=== PATIENT | male | born 1995 | race Caucasian/White ===

== ENCOUNTER 2019-02-02 10:02 | Emergency (ER) | payer SELFPAY ==
[~2019-02-02] VITALS: Ht 188 cm; Wt 72.7 kg
[2019-02-02 10:05] VITALS: BP 135/74; PULSE 90; TEMP 97.7
== END 2019-02-02 10:37 | disposition home or self-care (01) ==
LOC: COL.ER 10:02
DX: H61.21 Impacted cerumen, right ear (principal)

== ENCOUNTER 2019-02-12 00:46 | Emergency (ER) | payer SELFPAY ==
[2019-02-12 00:48] VITALS: BP 122/86; TEMP 97
[2019-02-12 02:40] VITALS: PULSE 105
== END 2019-02-12 02:40 | disposition home or self-care (01) ==
LOC: COL.ER 00:46
DX: S63.266A Dislocation of metacarpophalangeal joint of right little finger, initial encounter (principal); F17.210 Nicotine dependence, cigarettes, uncomplicated; F12.90 Cannabis use, unspecified, uncomplicated; W19.XXXA Unspecified fall, initial encounter
CPT/HCPCS: Q4021

== ENCOUNTER 2019-02-12 03:20 | Emergency (ER) | payer SELFPAY ==
[~2019-02-12] VITALS: Ht 188 cm; Wt 63.0 kg
[2019-02-12 04:24] LABS: TRICYCLIC ANTIDEPRESS URINE NEGATIVE
[2019-02-12 04:26] LABS: BASO # 0.1 (0.0-0.2); BASO % 0.7 % (0.0-2.0); EOS % 0.4 % (0-4.0); GRAN # 4.6 (1.4-6.5); HEMATOCRIT 46.9 % (42.0-52.0); HEMOGLOBIN 15.7 g/dl (13.5-18.0); LYMPH # 1.9 (1.2-3.4); LYMPH % 26.8 % (20.0-51.0); MEAN CELL VOLUME 93 fl (80.0-100.0); MEAN CORPUSCULAR HEMOGLOBIN 31 pg (27.0-31.0); MEAN CORPUSCULAR HGB CONC 34 g/dl (33.0-37.0); MEAN PLATELET VOLUME 9.4 fl (7.4-10.4); MONO # 0.4 (0.1-0.6); MONO % 5.8 % (1.7-9.3); PLATELET COUNT 320 K/mm3 (130-400); RED BLOOD COUNT 5.02 M/mm3 (4.20-5.60); REDCELL DISTRIBUTION WIDTH-CV 12.3 % (11.5-14.5)
[2019-02-12 04:35] LABS: ALANINE AMINOTRANSFERASE 14 U/L (21-72); ALBUMIN 4.9 gm/dL (3.5-5.0); ALCOHOL(ethanol),MEDICAL 71 mg/dL; ALKALINE PHOSPHATASE 53 U/L (50-136); ANION GAP 14 mmol/L (7-16); AST,SGOT 24 U/L (15-37); BILIRUBIN,TOTAL 0.6 mg/dL (0.0-1.0); BLOOD UREA NITROGEN 12 mg/dL (9-20); CALCIUM 9.5 mg/dL (8.4-10.2); CARBON DIOXIDE 27 mmol/L (22-30); CHLORIDE 109 mmol/L (98-107); CREATININE, serum 0.86 (0.66-1.25); GLUCOSE 109 mg/dL (74-106); POTASSIUM 4.8 mmol/L (3.4-5.0); SODIUM 151 mmol/L (137-145); TOTAL PROTEIN 8.3 gm/dL (6.4-8.2)
[2019-02-12 04:37] LABS: ACETAMINOPHEN < 10 ug/mL (10-30); SALICYLATE < 1.0 mg/dL
[2019-02-12 11:10] VITALS: TEMP 98.5
[2019-02-12 23:06] VITALS: BP 118/92; PULSE 88
== END 2019-02-12 23:03 | disposition home or self-care (01) ==
LOC: COL.ER 03:20
PROVIDERS: Emergency Medicine
DX: R45.851 Suicidal ideations (principal); F32.9 Major depressive disorder, single episode, unspecified; F17.210 Nicotine dependence, cigarettes, uncomplicated

== ENCOUNTER 2020-03-07 23:48 | Emergency (ER) | payer SELFPAY ==
[~2020-03-07] VITALS: Ht 175.3 cm; Wt 79.5 kg
[2020-03-07 23:53] VITALS: TEMP 98.7
[2020-03-08 01:02] LABS: BASO # 0.1 (0.0-0.2); BASO % 0.7 % (0.0-2.0); EOS # 0.1 (0.0-0.7); EOS % 2.1 % (0-4.0); GRAN # 3.7 (1.4-6.5); GRAN % 55.8 % (42.2-75.2); HEMATOCRIT 40.2 % (42.0-52.0); HEMOGLOBIN 13.3 g/dl (13.5-18.0); LYMPH # 2.1 (1.2-3.4); LYMPH % 31.9 % (20.0-51.0); MEAN CELL VOLUME 93 fl (80.0-100.0); MEAN CORPUSCULAR HEMOGLOBIN 31 pg (27.0-31.0); MEAN CORPUSCULAR HGB CONC 33 g/dl (33.0-37.0); MEAN PLATELET VOLUME 9.7 fl (7.4-10.4); MONO # 0.6 (0.1-0.6); MONO % 9.4 % (1.7-9.3); PLATELET COUNT 266 K/mm3 (130-400); RED BLOOD COUNT 4.33 M/mm3 (4.20-5.60); REDCELL DISTRIBUTION WIDTH-CV 12.9 % (11.5-14.5)
[2020-03-08 01:24] LABS: ACETAMINOPHEN < 10 ug/mL (10-30); ALANINE AMINOTRANSFERASE 14 U/L (4-49); ALCOHOL(ethanol),MEDICAL 175 mg/dL; ALKALINE PHOSPHATASE 54 U/L (50-136); ANION GAP 12 mmol/L (7-16); AST,SGOT 36 U/L (15-37); BILIRUBIN,TOTAL 0.4 mg/dL (0.0-1.0); BLOOD UREA NITROGEN 13 mg/dL (9-20); CALCIUM 8.3 mg/dL (8.4-10.2); CARBON DIOXIDE 19 mmol/L (22-30); CHLORIDE 111 mmol/L (98-107); GLUCOSE 110 mg/dL (74-106); LIPASE 103 U/L (23-300); MAGNESIUM 1.8 mg/dL (1.6-2.3); POTASSIUM 3.5 mmol/L (3.4-5.0); SALICYLATE < 1.0 mg/dL; SODIUM 142 mmol/L (137-145); TOTAL PROTEIN 6.7 gm/dL (6.4-8.2)
[2020-03-08 01:47] LABS: COLLECTION METHOD CLEAN CATCH
[2020-03-08 01:50] LABS: TSH w REFLEX 0.852 uIU/mL (0.465-4.680)
[2020-03-08 01:53] LABS: MUCOUS Present /lpf; PH 5 (5-8); SQUAMOUS EPITHELIAL None Seen /hpf; URINE APPEARANCE Clear; URINE BACTERIA None Seen /hpf; URINE BILIRUBIN Negative (NEGATIVE); URINE BLOOD 1+ (NEGATIVE); URINE COLOR Yellow; URINE GLUCOSE Negative (NEGATIVE); URINE KETONE Negative (NEGATIVE); URINE LEUKOCYTE ESTERASE Negative (NEGATIVE); URINE NITRATE Negative (NEGATIVE); URINE PROTEIN(semi-quant) Negative (NEGATIVE); URINE RBC 0-2 /hpf; URINE UROBILINOGEN Negative (NEGATIVE)
[2020-03-08 02:08] LABS: TRICYCLIC ANTIDEPRESS URINE NEGATIVE
[2020-03-08] MEDS ORDERED: CEPHALEXIN500 M1 PO (05:53)
[2020-03-08 09:59] VITALS: BP 141/87; PULSE 81
== END 2020-03-08 10:05 | disposition home or self-care (01) ==
LOC: COL.ER 23:48
PROVIDERS: Emergency Medicine
DX: S51.812A Laceration without foreign body of left forearm, initial encounter (principal); F10.929 Alcohol use, unspecified with intoxication, unspecified; R45.89 Other symptoms and signs involving emotional state; Y90.6 Blood alcohol level of 120-199 mg/100 ml; Z88.2 Allergy status to sulfonamides; X78.1XXA Intentional self-harm by knife, initial encounter
CPT/HCPCS: J7030; Q4021

== ENCOUNTER 2020-03-18 00:02 | Emergency (ER) | payer SELFPAY ==
[~2020-03-18 00:02] MED LIST: CEPHALEXIN500 M1 PO
== END 2020-03-18 00:07 | disposition left against medical advice (07) ==
LOC: COL.ER 00:02
DX: Z72.89 Other problems related to lifestyle (principal)

== ENCOUNTER 2020-03-18 00:24 | Emergency (ER) | payer SELFPAY ==
[~2020-03-18] VITALS: Ht 188 cm; Wt 72.3 kg
[2020-03-18 00:30] VITALS: BP 113/75; TEMP 98.7
[2020-03-18 01:37] VITALS: PULSE 81
== END 2020-03-18 01:38 | disposition home or self-care (01) ==
LOC: COL.ER 00:24
DX: S51.811A Laceration without foreign body of right forearm, initial encounter (principal); W25.XXXA Contact with sharp glass, initial encounter; Y92.009 Unspecified place in unspecified non-institutional (private) residence as the place of occurrence of the external cause

== ENCOUNTER 2020-04-14 22:31 | Emergency (ER) | payer SELFPAY ==
[~2020-04-14] VITALS: Ht 182.9 cm; Wt 72.7 kg
[2020-04-14 22:40] VITALS: TEMP 98.5
[2020-04-14 22:52] LABS: BASO # 0.1 (0.0-0.2); BASO % 0.8 % (0.0-2.0); EOS % 0.4 % (0-4.0); GRAN # 4.4 (1.4-6.5); GRAN % 62.2 % (42.2-75.2); HEMATOCRIT 41.8 % (42.0-52.0); HEMOGLOBIN 14.2 g/dl (13.5-18.0); LYMPH # 1.9 (1.2-3.4); LYMPH % 27.2 % (20.0-51.0); MEAN CELL VOLUME 93 fl (80.0-100.0); MEAN CORPUSCULAR HEMOGLOBIN 32 pg (27.0-31.0); MEAN CORPUSCULAR HGB CONC 34 g/dl (33.0-37.0); MEAN PLATELET VOLUME 9.7 fl (7.4-10.4); MONO # 0.7 (0.1-0.6); MONO % 9.1 % (1.7-9.3); PLATELET COUNT 316 K/mm3 (130-400)
[2020-04-14 23:01] LABS: ALANINE AMINOTRANSFERASE 17 U/L (4-49); ALBUMIN 4.9 gm/dL (3.5-5.0); ALCOHOL(ethanol),MEDICAL 135 mg/dL; ALKALINE PHOSPHATASE 62 U/L (50-136); ANION GAP 19 mmol/L (7-16); AST,SGOT 35 U/L (15-37); BILIRUBIN,TOTAL 1.1 mg/dL (0.0-1.0); BLOOD UREA NITROGEN 7 mg/dL (9-20); CALCIUM 9.6 mg/dL (8.4-10.2); CARBON DIOXIDE 19 mmol/L (22-30); CHLORIDE 101 mmol/L (98-107); CREATININE, serum 0.99 (0.66-1.25); GLUCOSE 78 mg/dL (74-106); POTASSIUM 3.6 mmol/L (3.4-5.0); SODIUM 139 mmol/L (137-145); TOTAL PROTEIN 8.1 gm/dL (6.4-8.2)
[2020-04-14 23:02] LABS: ACETAMINOPHEN < 10 ug/mL (10-30); SALICYLATE < 1.0 mg/dL
[2020-04-14 23:10] LABS: COLLECTION METHOD CLEAN CATCH
[2020-04-14 23:16] LABS: PH 6 (5-8); SQUAMOUS EPITHELIAL None Seen /hpf; URINE APPEARANCE Clear; URINE BACTERIA None Seen /hpf; URINE BILIRUBIN Negative (NEGATIVE); URINE BLOOD 1+ (NEGATIVE); URINE COLOR Straw; URINE GLUCOSE Negative (NEGATIVE); URINE KETONE Negative (NEGATIVE); URINE LEUKOCYTE ESTERASE Negative (NEGATIVE); URINE NITRATE Negative (NEGATIVE); URINE PROTEIN(semi-quant) Negative (NEGATIVE); URINE RBC 0-2 /hpf; URINE UROBILINOGEN Negative (NEGATIVE)
[2020-04-14 23:27] LABS: TRICYCLIC ANTIDEPRESS URINE NEGATIVE
[2020-04-15 16:30] VITALS: BP 114/84; PULSE 89
== END 2020-04-15 16:51 | disposition home or self-care (01) ==
LOC: COL.ER 22:31
PROVIDERS: Physician Assistant
DX: T54.2X2A Toxic effect of corrosive acids and acid-like substances, intentional self-harm, initial encounter (principal); F10.129 Alcohol abuse with intoxication, unspecified; F17.210 Nicotine dependence, cigarettes, uncomplicated; Z88.2 Allergy status to sulfonamides
CPT/HCPCS: J1200; J1630; J7030